=== PATIENT | female | born 1975 | race Caucasian/White ===

== ENCOUNTER 2018-09-29 11:09 | Emergency (ER) | payer OTHER ==
[~2018-09-29] VITALS: Ht 157.5 cm; Wt 104.6 kg
[~2018-09-29 11:09] MED LIST: BACTDS PO; CEPH-443 PO; IBUP-1542 PO; LEVE100018 PO
[2018-09-29 11:23] VITALS: Ht 157.5 cm; Wt 104.6 kg
--- NOTE | 2018-09-29 11:37 | ERD ---
ER Documentation Chief Complaint Chief Complaint CP x 1 week; hx of stroke HPI 43-year-old woman complaining of sharp nonexertional nonradiating chest pain x1 week. She states the pain was initially intermittent throughout the day but since last night has been constant. She has had no shortness of breath, no fevers or chills, no calf or leg swelling, no headache or blurry vision, no complaints of abdominal pain. Patient denies any obvious precipitating or alleviating factors. ROS All systems reviewed and are negative except as per history of present illness. Medications Home Meds Active Scripts Ibuprofen* (Motrin*) 600 Mg Tab, 600 MG PO Q8 PRN for PAIN AND/OR INFLAMMATION, #30 TAB Prov:KEVIN TO MD 09/29/18 Reported Medications Ibuprofen* (Ibuprofen*) 600 Mg Tablet, 600 MG PO Q6, TAB 09/29/18 Discontinued Scripts Levetiracetam* (Keppra*) 1,000 Mg Tablet, 1000 MG PO BID, #20 TAB Prov:MARCELLO SPAIN NP 12/29/15 Sulfamethoxazole-Trimethoprim* (Bactrim* DS) 800-160 Mg Tab, 1 TAB PO BID for 10 Days, TAB Prov:MARCELLO SPAIN NP 12/29/15 Cephalexin* (Keflex*) 500 Mg Capsule, 500 MG PO QID for 10 Days, CAP Prov:MARCELLO SPAIN NP 12/29/15 Allergies Allergies: Coded Allergies: No Known Allergy (Unverified , 12/13/15) PMhx/Soc History of ruptured INES aneurysm, obesity, 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 History of Surgery: Yes (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) Anesthesia Reaction: No Hx Neurological Disorder: No Hx Respiratory Disorders: Yes Hx Cardiac Disorders: No Hx Psychiatric Problems: No Hx Miscellaneous Medical Probl: Yes (SEIZURE POST OP) Hx Alcohol Use: No Hx Substance Use: No Hx Tobacco Use: No FmHx Family History: No diabetes Physical Exam Vitals Vital Signs Date Temp Pulse Resp B/P (MAP) Pulse Ox O2 O2 Flow FiO2 Time Delivery Rate 09/29/18 74 18 129/80 98 Room Air 13:00 (96) 09/29/18 98.3 72 20 134/84 97 11:23 (101) Physical Exam Const: No acute distress, well-developed well-nourished, afebrile Resp: Clear to auscultation bilaterally Cardio: Regular rate and rhythm, no murmurs Abd: Soft, non tender, non distended. Normal bowel sounds Skin: No petechiae or rashes Back: No midline or flank tenderness Ext: No cyanosis, or edema Neur: Awake and alert x3, no focal deficits or facial asymmetry, pupils equal round reactive to light Psych: Normal Mood and Affect Result Diagram: 09/29/18 1144 09/29/18 1144 Results 24 hrs Laboratory Tests Test 09/29/18 11:44 09/29/18 11:55 09/29/18 12:08 White Blood Count 6.3 10^3/ul Red Blood Count 4.86 10^6/ul Hemoglobin 13.7 g/dl Hematocrit 41.8 % Mean Corpuscular Volume 86.0 fl Mean Corpuscular Hemoglobin 28.2 pg Mean Corpuscular 32.8 g/dl Hemoglobin Concent Red Cell Distribution Width 14.3 % Platelet Count 267 10^3/UL Mean Platelet Volume 10.7 fl Immature Granulocytes % 1.100 % Neutrophils % 58.1 % Lymphocytes % 33.1 % Monocytes % 5.6 % Eosinophils % 1.6 % Basophils % 0.5 % Nucleated Red Blood Cells % 0.0 /100WBC Immature Granulocytes # 0.070 10^3/ul Neutrophils # 3.7 10^3/ul Lymphocytes # 2.1 10^3/ul Monocytes # 0.4 10^3/ul Eosinophils # 0.1 10^3/ul Basophils # 0.0 10^3/ul Nucleated Red Blood Cells # 0.0 10^3/ul Prothrombin Time 12.3 Sec Prothrombin Time Ratio 1.0 INR International 0.90 Normalized Ratio Activated Partial Thromboplast 31.0 Sec Time Sodium Level 143 mmol/L Potassium Level 3.9 mmol/L Chloride Level 107 mmol/L Carbon Dioxide Level 28 mmol/L Anion Gap 8 Blood Urea Nitrogen 12 mg/dl Creatinine 0.53 mg/dl Est Glomerular Filtrat > 60 mL/min Rate mL/min Glucose Level 115 mg/dl Calcium Level 8.6 mg/dl Total Bilirubin 0.5 mg/dl Direct Bilirubin 0.00 mg/dl Indirect Bilirubin 0.5 mg/dl Aspartate Amino Transf (AST/SGOT) 68 IU/L Alanine 104 IU/L Aminotransferase (ALT/SGPT) Alkaline Phosphatase 94 IU/L Troponin I < 0.012 ng/ml Total Protein 7.1 g/dl Albumin 4.0 g/dl Globulin 3.10 g/dl Albumin/Globulin Ratio 1.29 Lipase 43 U/L Urine Color YELLOW Urine Clarity CLEAR Urine pH 6.0 Urine Specific [place] 1.016 Urine Ketones NEGATIVE mg/dL Urine Nitrite NEGATIVE mg/dL Urine Bilirubin NEGATIVE mg/dL Urine Urobilinogen NEGATIVE mg/dL Urine Leukocyte Esterase NEGATIVE Ange/ul Urine Hemoglobin NEGATIVE mg/dL Urine Glucose NEGATIVE mg/dL Urine Total Protein NEGATIVE mg/dl POC Beta HCG, Qualitative NEGATIVE Current Medications Medications Dose Sig/Nela Start Time Status Last (Trade) Ordered Route PRN Stop Time Admin Dose Reason Admin Sodium 500 ml @ Q1H STAT 09/29/18 DC 09/29/18 Chloride 500 mls/hr IV 11:39 09/29/18 12:04 12:38 Ketorolac 15 mg ONCE STAT 09/29/18 DC 09/29/18 Tromethamine IV 11:39 09/29/18 12:04 (Toradol) 11:41 IV Flush 10 ml STK-MED 09/29/18 DC (NS 10 ml) ONCE .ROUTE 13:05 09/29/18 13:06 Sodium 100 ml @ ud STK-MED 09/29/18 DC Chloride ONCE .ROUTE 13:05 09/29/18 13:06 Iohexol 100 ml @ ud STK-MED 09/29/18 DC ONCE .ROUTE 13:05 09/29/18 13:06 Procedures/MDM IV line was established 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 Patient was afebrile EKG performed, read by me revealed a normal sinus rhythm at 66 bpm, normal axis, narrow QRS complex, no concerning ST elevations or depressions noted I administered 500 cc normal saline IV and Toradol 15 mg IV for pain. Chest X-ray 1V Interpreted by me: Soft Tissue: No acute abnormalities Bones: No acute abnormalities Mediastinum/Cardiac Silhouette/Lungs: No acute abnormalities CTA of the chest was performed, no pulmonary embolism noted. Please refer to radiologist dictation for full report. CBC and electrolytes were unremarkable, liver function tests revealed mild transaminitis, troponin negative, urinalysis negative for infection. Differential diagnoses considered, included but not limited to acute coronary syndrome, pulmonary embolism, aortic dissection, abdominal aortic aneurysm, sepsis, stroke, meningitis, encephalitis, pneumonia, appendicitis, chol ecystitis, bowel obstruction, pyelonephritis, nephrolithiasis, cystitis, as well as metabolic, hematologic, and electrolyte abnormalities. As well as abscess, cellulitis, fractures, and dislocations. Patient feels much better at this time, and vital signs are normal, symptoms have improved. I did give strict instructions to return to the ED if symptoms continue or worsen, patient will otherwise follow-up with primary care physician. Patient understood instructions and agreed to plan. Disclaimer: Inadvertent spelling and grammatical errors are likely due to EHR/dictation software use and do not reflect on the overall quality of patient care. Also, please note that the electronic time recorded on this note does not necessarily reflect the actual time of the patient encounter. Departure Diagnosis: Primary Impression: Chest pain Chest pain type: unspecified Qualified Codes: R07.9 - Chest pain, unspecified Condition: KEVIN Tse MD Sep 29, 2018 11:37
[2018-09-29] MEDS ORDERED: SOD CHLORIDE 0.9% 500 ML IV STA (11:39)
[2018-09-29] MEDS ORDERED: KETOROLAC 15 MG INJ IV STA (11:39)
[2018-09-29] MEDS ORDERED: SOD CHLORIDE 0.9% 100 ML ONE (13:05)
[2018-09-29] MEDS ORDERED: IOHEXOL 100 ML ONE (13:05)
[2018-09-29 14:00] VITALS: BP 126/69; PULSE 78; RESP 19
== END 2018-09-29 15:04 | disposition home or self-care (01) ==
LOC: E/R 11:09
DX: R07.9 Chest pain, unspecified (principal); E66.9 Obesity, unspecified; Z68.41 Body mass index [BMI] 40.0-44.9, adult; Z86.73 Personal history of transient ischemic attack (TIA), and cerebral infarction without residual deficits
CPT/HCPCS: 36415; 71045; 71275; 80053; 81003; 81025; 83690; 84484; 85025; 85610; 85730; 93005; 96374; J1885; J7040; Q9967; Z7502; Z7610